=== PATIENT | female | born 1950 | race Caucasian/White ===

== ENCOUNTER 2017-12-09 04:52 | Emergency (ER) | payer OTHER ==
[~2017-12-09] VITALS: Ht 167.6 cm; Wt 68.0 kg
[2017-12-09 05:37] LABS: CHLORIDE 101 mEq/L (99-109); POTASSIUM 3.9 mEq/L (3.7-5.4); SODIUM 138 mEq/L (136-147)
[2017-12-09 05:38] LABS: GLUCOSE 96 mg/dL (70-99)
[2017-12-09 05:42] LABS: CREATININE 0.9 mg/dL (0.6-1.3); GFR ESTIMATE (CALCULATED) > 59 mL/min/
[2017-12-09 05:43] LABS: HEMATOCRIT 42.4 % (36.0-46.0); HEMOGLOBIN 14.2 G/DL (11.9-15.5); MCH 30.2 PG (29.0-34.0); MCHC 33.5 G/DL (30.0-36.0); MCV 90.2 FL (83-99); PLATELET COUNT 315 K/uL (156-360); RBC DIS.WIDTH-CV 11.9 % (11.8-14.6); RBC DIS.WIDTH-SD 39.1 % (39-53); UREA NITROGEN (BUN) 12 mg/dL (9-23); WHITE BLOOD COUNT 6.5 K/uL (4.1-10.2)
[2017-12-09] MEDS ORDERED: MAGNESIUM400 M1 PO (09:08)
[2017-12-09] MEDS ORDERED: LISINOPRIL20 MG PO (09:08)
[2017-12-09] MEDS ORDERED: PERCOCET 5/31 TABLET PO (11:12)
[2017-12-09 11:27] VITALS: BP 139/87
== END 2017-12-09 11:28 | disposition home or self-care (01) ==
LOC: EME 04:52 → EDOF 08:30 → ENRESERV 08:31 → CANRESERV 08:31
PROVIDERS: Emergency Medicine
DX: C79.51 Secondary malignant neoplasm of bone (principal); G89.3 Neoplasm related pain (acute) (chronic); Z85.3 Personal history of malignant neoplasm of breast; Z90.12 Acquired absence of left breast and nipple; Z92.3 Personal history of irradiation; I10 Essential (primary) hypertension; Z87.891 Personal history of nicotine dependence
CPT/HCPCS: 71275; 72128; 72131; 80048; 80053; 85027; 85610; 85730; 99281; 99285; J1100; J2060